=== PATIENT | female | born 1950 | race Caucasian/White ===

== ENCOUNTER 2017-01-04 09:04 | Emergency (ER) | payer OTHER ==
[~2017-01-04] VITALS: Ht 165.1 cm; Wt 80.2 kg
[2017-01-04] MEDS ORDERED: SODIUM CHLORIDE FLUSH 10ML SYR IVF ONE (11:00)
[2017-01-04] MEDS ORDERED: AMPICILLIN/SULBACTAM 3 GM in SODIUM CHLORIDE 0.9% 100 ML IVPB ONE (11:00)
[2017-01-04 11:08] LABS: HEMOGLOBIN 13.6 g/dL (11.7-16.4); WHITE BLOOD COUNT 6.2 x10^3/uL (3.4-10)
[2017-01-04 11:21] LABS: BLOOD UREA NITROGEN 19 mg/dL (7-18)
[2017-01-04 11:39] VITALS: BP 138/69
== END 2017-01-04 12:59 | disposition home or self-care (01) ==
LOC: ED 11:51
DX: L03.211 Cellulitis of face (principal)
CPT/HCPCS: 36415; 80048; 82040; 83605; 85025; 87040; 96365; 99284; J0295